=== PATIENT | female | born 1985 | race Caucasian/White ===

== ENCOUNTER → 2018-04-27 12:30 | Outpatient (CLI) | payer MEDICAID ==
[~2018-04-27 12:30] MED LIST: HYDROCODON-ACE1 EAC7 PO; KLONOPIN0.5 MG PO; ULTRAM50 MG PO
== END | disposition home or self-care (01) ==
LOC: D.CT 12:30
DX: R93.8 Abnormal findings on diagnostic imaging of other specified body structures (principal)

== ENCOUNTER → 2018-05-16 08:37 | Outpatient (CLI) | payer MEDICAID | END | disposition home or self-care (01) | LOC: D.NM 08:37 | DX: R10.11 Right upper quadrant pain (principal) ==

== ENCOUNTER 2018-06-19 09:24 | Day surgery (SDC) | payer MEDICAID ==
[2018-06-16 10:17] LABS: HEMATOCRIT 38.3 % (36.0-48.0); MCH 28.1 pg (26.0-34.0); MCHC 33.9 g/dL (31.0-37.0); MCV 82.9 fL (80.0-100.0); MEAN PLATELET VOLUME 8.9 fL (7.4-10.4); RBC 4.62 10x6/uL (4.00-5.40); RDW 12.9 % (11.5-14.5); WBC 6.7 10x3/uL (4.8-10.8)
[~2018-06-19] VITALS: Ht 160 cm; Wt 81.6 kg
[~2018-06-19 09:24] MED LIST changes: -HYDROCODON-ACE1 EAC7 PO
[2018-06-19 09:36] VITALS: Ht 160 cm; Wt 81.6 kg
[2018-06-19 10:07] LABS: HCG URINE NEGATIVE (NEGATIVE)
[2018-06-19] MEDS ORDERED: HYDROCODON-ACE1 EAC7 PO (12:47)
== END 2018-06-19 16:15 | disposition home or self-care (01) ==
LOC: D.OPS 09:24
PROVIDERS: Anesthesiology; Surgery
DX: K80.10 Calculus of gallbladder with chronic cholecystitis without obstruction (principal); Z01.812 Encounter for preprocedural laboratory examination